=== PATIENT | male | born 1975 | race Caucasian/White ===

== ENCOUNTER 2020-05-24 12:25 | Day surgery (SDC) | payer OTHER ==
[~2020-05-24 12:25] MED LIST: Dexamethasone 20 MG/5 ML VIAL ONE; Glycopyrrolate 0.2 MG/ML 5 ML SYRINGE ONE; Lidocaine 1% PF 5 ML VIAL ONE; Ondansetron PF 4 MG/2 ML Vial ONE; PROPOFOL 200 MG/20 ML VIAL ONE; Rocuronium Bromide 10 MG/ML (10ML VIAL) ONE; Succinylcholine Chloride 20 MG/ML 10 ml SYRINGE FS ONE
[2020-05-24 13:12] LABS: #Basophils 0.1 thou/uL (0.0-0.2); #Eosinphils 0.1 thou/uL (0.0-0.7); #Monocytes 1.4 thou/uL (0.11-0.59); #Neutrophils 14.1 thou/uL (1.40-6.50); %Basophils 0.3 % (0.0-1.0); %Eosinophils 0.5 % (0.0-10.0); %Lymphocytes 11.5 % (21.0-51.0); %Monocytes 8.1 % (0.0-10.0); %Neutrophils 79.6 % (42.0-75.0); Hemoglobin 14.7 g/dL (14.0-18.0); Mean Corpuscular HGB CONC 34.5 g/dL (32.0-36.0); Mean Corpuscular Hemoglobin 29.8 pg (27.0-31.0); Mean Corpuscular Volume 86.3 fL (78.0-98.0); Mean Platelet Volume 7.6 fL (7.4-10.4); Platelet Count 224 thou/uL (130-400); RBC Distribution Width 11.9 % (11.5-14.5); Red Blood Cell (RBC) Count 4.93 mill/uL (4.70-6.10); White Blood Cell (WBC) Count 17.8 thou/uL (4.8-10.8)
[2020-05-24 13:34] LABS: ALT (SGPT) 13 U/L (8-55); AST (SGOT) 15 U/L (5-34); Albumin 3.9 g/dL (3.5-5.0); Alkaline Phosphatase 121 U/L (40-110); Anion Gap 14 mmol/L (10-20); BUN (Urea Nitrogen) 14 mg/dL (8.9-20.6); Bilirubin, Total 1.1 mg/dL (0.2-1.2); Calc. Creatinine Clearance 0 mL/min (70-130); Calcium 9.2 mg/dL (7.8-10.44); Carbon Dioxide 22 mmol/L (22-29); Chloride 102 mmol/L (98-107); Estimated GFR-MDRD Greater than 90; Glucose 159 mg/dL (70-105); Potassium 3.8 mmol/L (3.5-5.1); Protein, Total 6.9 g/dL (6.0-8.3); Sodium 134 mmol/L (136-145)
[2020-05-24] MEDS ORDERED: Iopamidol 370 76% 100 ML VIAL ONE (13:43)
--- NOTE | 2020-05-24 14:44 | CT ---
CT ABDOMEN AND PELVIS WITH IV CONTRAST: 05/24/20 HISTORY: Right lower quadrant abdominal pain, progressively worsening over the last three days. FINDINGS: Comparison is made with exam of 08/03/14. There are dependent changes in the lung bases. Patient is post cholecystectomy. The liver, spleen, pa ncreas, right adrenal gland and kidneys are normal. There has been interval increase in size of the left adrenal nodule from 14 mm on the previous study to 18 mm on the current exam. The appendix is fluid-filled, distended with a discontinuity in the lateral wall with adjacent free f luid in the right lower quadrant and inflammatory changes in the right pericecum and periappendiceal regions. IMPRESSION: 1. Findings are consistent with acute perforated appendicitis. 2. Interval increase in size of the indeterminate left adrenal nodule since 08/03/14. A dedicated CT s can using the adrenal mass protocol is recommended. Discussed over the telephone with ER physician Dr. Alicia Buck at 2:21 p.m. and the surgeon, Dr. Jayme El at 2:24 p.m. POS: [facility]
[2020-05-24] MEDS ORDERED: Piperacillin/Tazobactam 3.375 GM VIAL ONE (14:48)
[2020-05-24] MEDS ORDERED: Lidocaine 1% w/Epinephrine 1:100K 20 ML VIAL ONE (15:13)
[2020-05-24] MEDS ORDERED: Bupivacaine PF 0.5% 30 ML VIAL ONE (15:13)
[2020-05-24] MEDS ORDERED: Fentanyl 100 MCG/2 ML VIAL ONE ×2 (15:27→18:05)
[2020-05-24] MEDS ORDERED: Lidocaine 2% Jelly 5 ML TUBE ONE (15:27)
[2020-05-24] MEDS ORDERED: Midazolam HCl 2 mg/2 ml Vial ONE (15:27)
[2020-05-24] MEDS ORDERED: HYDROmorphone 0.5 MG/0.5 ML SYRINGE ONE (15:27)
--- NOTE | 2020-05-24 15:27 | HP ---
HISTORY OF PRESENT ILLNESS: Mr. Stone is a 44-year-old male, who lives at home helping his mother in [place]. For 3 days, he has had lower abdominal pain he thought was gas. He has not experienced nausea, vomiting, or fever. He has suffered anorexia. Pain is worse with movement. ALLERGIES: TETANUS, CTZ. TOBACCO: One-half pack per day. ALCOHOL: None. PAST SURGICAL HISTORY: Laparoscopic cholecystectomy, right knee surgery. PAST MEDICAL HISTORY: Insulin-dependent diabetes mellitus, 10 units a.m. and 10 units at bedtime; hypertension. REVIEW OF SYSTEMS: Noncontributory. FAMILY HISTORY: Noncontributory. PHYSICAL EXAMINATION: VITAL SIGNS: Heart rate 84, respiratory rate 16, blood pressure 120/70. HEAD, EARS, EYES, NOSE, AND THROAT: Unremarkable. LUNGS: Clear to auscultation. CARDIAC: Regular rate and rhythm without murmur or gallop. ABDOMEN: Soft, tenderness in right lower quadrant without guarding or rebound. Positive Rovsing's. EXTREMITIES: Unremarkable. No ankle edema. NEUROLOGIC: Intact. No deficits. LYMPHATIC: No lymphadenopathy in neck, axilla, or groin. ASSESSMENT AND PLAN: Acute appendicitis. Recommend laparoscopic video appendectomy. Risks of infection, bleeding, reoperation, open procedure discussed. He consents. Job ID: [id number]
[2020-05-24] MEDS ORDERED: Promethazine HCl 25 MG/ML VIAL SLOW IVP PRN (16:53)
[2020-05-24] MEDS ORDERED: Ketorolac Tromethamine 30 MG/ML VIAL IVP PRN ×2 (16:53→17:51)
[2020-05-24] MEDS ORDERED: Meperidine HCl/PF 25 MG/ML VIAL SLOW IVP PRN (16:53)
[2020-05-24] MEDS ORDERED: Promethazine HCl 25 MG/ML VIAL IM PRN (16:53)
[2020-05-24] MEDS ORDERED: Ondansetron HCl/PF 4 MG/2 ML Vial IVP PRN (16:53)
[2020-05-24] MEDS ORDERED: Ondansetron PF 4 MG/2 ML Vial IVP PRN (17:47)
[2020-05-24] MEDS ORDERED: hydrALAZINE 20 MG/ML VIAL SLOW IVP PRN (17:47)
[2020-05-24] MEDS ORDERED: Morphine 4 MG/ML VIAL SLOW IVP PRN (17:47)
[2020-05-24] MEDS ORDERED: Dextrose 5% in Water 1,000 ML IV PRN (17:47)
[2020-05-24] MEDS ORDERED: Morphine 2 MG/ML VIAL SLOW IVP PRN (17:47)
[2020-05-24] MEDS ORDERED: Dextrose 50% Abboject 50 ML SYRINGE SLOW IVP PRN (17:47)
[2020-05-24] MEDS ORDERED: traMADol HCl 50 MG TAB PO PRN ×2 (17:51)
[2020-05-24] MEDS ORDERED: Acetaminophen 500 MG TAB PO PRN (17:51)
[2020-05-24] MEDS ORDERED: Gabapentin 300 MG CAP PO PRN (17:54)
[2020-05-24] MEDS ORDERED: Albuterol 200 PUFF (6.7GM INHALER) INH PRN (17:54)
[2020-05-24] MEDS ORDERED: Albuterol Sulfate 1.25 MG/3 ML NEB NEB PRN (17:54)
--- NOTE | 2020-05-24 19:24 | OP ---
DATE OF PROCEDURE: 05/24/2020 PREOPERATIVE DIAGNOSES: Acute appendicitis with abscess. POSTOPERATIVE DIAGNOSIS: Acute appendicitis with abscess. PROCEDURES PERFORMED: Laparoscopic video appendectomy, #19 Gold VARGAS drain drainage of intraabdominal abscess, irrigation ANESTHESIA: General with local 0.5% Marcaine 30 mL mixed with 1% Xylocaine with epinephrine 20 mL used, mixture. DESCRIPTION OF PROCEDURE: The patient was taken to the operating room, where under general anesthesia, Hagan catheter placed at the beginning of the procedure and removed at the end. Abdomen was prepared with ChloraPrep and draped in routine fashion. Local anesthetic mixture was infiltrated into the skin and subcutaneous tissue about the operative site. Infraumbilical incision made. Pneumoperitoneum to 15 mmHg was obtained with a Veress needle, replaced with a 5 port, video laparoscope inserted. Right lateral subcostal incision made and a 5 port placed. Suprapubic incision made and a 12 port placed. Appendix was acutely inflamed, as the cecum and the appendix mobilized from the abdominal wall, there was an abscess, which was evacuated with suction. Appendix dissected free and stump divided with Endo-ARAVIND blue load stapler. Stapled the cecal stump, was hemostatic and secured, as the appendix dissected retrograde, divided, mesentery inflamed with LigaSure. Appendix was placed in endobag and removed. Area irrigated. Good hemostasis noted. #19 Gold VARGAS drain placed in the right gutter and pelvis, exiting the trocar site, right lateral subcostal, secured with 3-0 nylon suture. The irrigant and pneumoperitoneum evacuated and all instruments removed. All skin incisions were approximated with subdermal 4-0 Monocryl, suprapubic fascia approximated with 0 Vicryl on UR needle. The patient tolerated the procedure well. Job ID: [id number]
[2020-05-24] MEDS ORDERED: Famotidine 20 MG TAB PO SCH (21:00)
[2020-05-24] MEDS: Piperacillin/Tazobactam 4.5 GM in Sodium Chloride 0.9% 100 ML IVPB SCH (21:04)
[2020-05-24] MEDS: Sodium Chloride 0.9% 1,000 ML IV SCH (21:04)
[2020-05-24] MEDS: Bupropion 150 MG SR TAB PO SCH (21:05)
[2020-05-24] MEDS: Enoxaparin Sodium 40 MG/0.4 ML SYRINGE SC SCH (21:05)
[2020-05-24] MEDS: metFORMIN XR 500 MG TAB PO SCH (21:05)
[2020-05-24] MEDS: Citalopram 20 MG TAB PO SCH (21:06)
[2020-05-24] MEDS: HumaLOG 300 UNITS/3 ML VIAL SC PRN (21:06)
[2020-05-24 21:24] VITALS: BMI 22.1
[2020-05-25] MEDS: Piperacillin/Tazobactam 4.5 GM in Sodium Chloride 0.9% 100 ML IVPB SCH ×5 (02:12→20:41)
[2020-05-25 05:20] LABS: Hemoglobin A1c 10.9 % (4.0-6.0)
[2020-05-25 05:30] LABS: Band 4 % (5-11); Hemoglobin 13.7 g/dL (14.0-18.0); Hypochromia SLIGHT = 6-15 cells (100X) (0-5/hpf); Lymphocytes 5 % (21-51); MDiff Complete? YES; Mean Corpuscular HGB CONC 33.2 g/dL (32.0-36.0); Mean Corpuscular Hemoglobin 29.5 pg (27.0-31.0); Mean Corpuscular Volume 88.9 fL (78.0-98.0); Mean Platelet Volume 7.7 fL (7.4-10.4); Monocytes 2 % (0-10); Neutrophil 89 % (42-75); Platelet Count 222 thou/uL (130-400); Platelet Morphology Comment Appears Adequate; Red Blood Cell (RBC) Count 4.65 mill/uL (4.70-6.10); White Blood Cell (WBC) Count 19.3 thou/uL (4.8-10.8)
[2020-05-25 05:34] LABS: Anion Gap 22 mmol/L (10-20); BUN (Urea Nitrogen) 29 mg/dL (8.9-20.6); Calc. Creatinine Clearance 88 mL/min (70-130); Calcium 8.3 mg/dL (7.8-10.44); Carbon Dioxide 12 mmol/L (22-29); Chloride 107 mmol/L (98-107); Estimated GFR-MDRD 79; Glucose 161 mg/dL (70-105); Sodium 136 mmol/L (136-145)
[2020-05-25] MEDS: Mometasone 200 MCG/Formoterol 5 MCG 120 PUFF INHALER INH SCH ×2 (07:04→18:42)
[2020-05-25] MEDS: Empagliflozin 25 MG TAB PO SCH (08:41)
[2020-05-25] MEDS: Bupropion 150 MG SR TAB PO SCH ×2 (08:41→20:40)
[2020-05-25] MEDS: metFORMIN XR 500 MG TAB PO SCH ×2 (08:41→20:40)
[2020-05-25] MEDS: Sodium Chloride 0.9% 1,000 ML IV SCH ×3 (08:44→16:58)
[2020-05-25] MEDS ORDERED: Liraglutide [Victoza 2-Pak] 1.8 MG SC SCH (09:00)
[2020-05-25] MEDS: HumaLOG 300 UNITS/3 ML VIAL SC PRN ×2 (11:24→16:56)
[2020-05-25] MEDS: Nicotine 14 MG PATCH TD SCH (13:17)
[2020-05-25] MEDS: Ibuprofen 600 MG TAB PO PRN (14:31)
--- NOTE | 2020-05-25 17:04 | PRG ---
DATE OF SERVICE: 05/25/2020 SUBJECTIVE: Mikal Stone is doing well postoperatively, postoperative laparoscopic appendectomy for advanced appendicitis. He had an abscess at the time of appendectomy. A drain was left in place. The patient states he is not having any pain. OBJECTIVE: VITAL SIGNS: Temperature 97.9 degrees, pulse 63, blood pressure 118/66. VARGAS drain is serosanguineous as expected, 60 mL in the last 24 hours. His white count this morning is 19, hemoglobin 13. Basic metabolic profile is normal. LUNGS: Clear to auscultation. CARDIAC: Regular rate and rhythm without murmur or gallop. ABDOMEN: Soft, nontender. Surgical wounds look good. VARGAS drain is serosanguineous. ASSESSMENT AND PLAN: Status post ruptured appendicitis with abscess appreciated intraoperatively, but not on CAT scan. We would continue intravenous antibiotics for another 24 to 48 hours. I have written prescription for Augmentin for [address] Call is covering over the weekend and the drain will be removed prior to discharge. Hopefully, he can go home in the next day or two, pending diet tolerance and his clinical course. He can follow up with me in 2 to 3 weeks. Take Tylenol and Advil for pain. Job ID: [id number]
[2020-05-25] MEDS: Enoxaparin Sodium 40 MG/0.4 ML SYRINGE SC SCH (20:40)
[2020-05-25] MEDS: Citalopram 20 MG TAB PO SCH (20:41)
[2020-05-26] MEDS: Piperacillin/Tazobactam 4.5 GM in Sodium Chloride 0.9% 100 ML IVPB SCH ×3 (01:10→13:17)
[2020-05-26] MEDS: Sodium Chloride 0.9% 1,000 ML IV SCH ×2 (01:12→09:07)
[2020-05-26] MEDS: Ibuprofen 600 MG TAB PO PRN (03:28)
[2020-05-26 07:38] VITALS: TEMP 97.7
[2020-05-26] MEDS: Empagliflozin 25 MG TAB PO SCH (08:01)
[2020-05-26] MEDS: Bupropion 150 MG SR TAB PO SCH (08:01)
[2020-05-26] MEDS: metFORMIN XR 500 MG TAB PO SCH (08:01)
[2020-05-26] MEDS: Mometasone 200 MCG/Formoterol 5 MCG 120 PUFF INHALER INH SCH (08:06)
[2020-05-26 09:33] VITALS: BP 93/57
[2020-05-26 10:24] LABS: #Basophils 0.1 thou/uL (0.0-0.2); #Eosinphils 0.1 thou/uL (0.0-0.7); #Lymphocytes 1.7 thou/uL (1.20-3.40); #Monocytes 0.8 thou/uL (0.11-0.59); %Basophils 0.5 % (0.0-1.0); %Eosinophils 1.5 % (0.0-10.0); %Lymphocytes 17.2 % (21.0-51.0); %Monocytes 8.2 % (0.0-10.0); %Neutrophils 72.6 % (42.0-75.0); Hemoglobin 13.1 g/dL (14.0-18.0); Mean Corpuscular HGB CONC 34.1 g/dL (32.0-36.0); Mean Corpuscular Hemoglobin 30.3 pg (27.0-31.0); Mean Corpuscular Volume 88.9 fL (78.0-98.0); Mean Platelet Volume 7.6 fL (7.4-10.4); Platelet Count 202 thou/uL (130-400); RBC Distribution Width 12.2 % (11.5-14.5); Red Blood Cell (RBC) Count 4.32 mill/uL (4.70-6.10); White Blood Cell (WBC) Count 9.6 thou/uL (4.8-10.8)
[2020-05-26] MEDS: HumaLOG 300 UNITS/3 ML VIAL SC PRN (11:27)
[2020-05-26] MEDS ORDERED: Fluticasone Propionate Nasal Spray 16 gm Bottle NASAL PRN (12:56)
[2020-05-26] MEDS ORDERED: Non-Formulary Item 1 EACH (Naproxen Sodium [Aleve] 220 MG) PO PRN (12:56)
--- NOTE | 2020-05-26 13:04 | PDOC.GSPN ---
Surgery Progress Note: Subj - Subjective Narrative: Discharge note. Patient is feeling good today. He has not required any pain medication and is ambulating in the halls. He is tolerating a regular diet and passing gas. VARGAS drainage is minimal and serosanguineous in color. He is afebrile and his white count is normal. His incisions look good and his abdomen is soft nontender nondistended. He is going to be discharged home on a course of Augmentin with outpatient follow-up with Dr. Fallon. His VARGAS will be removed before he leaves. He is to resume his home medications. Surgery Progress Note: Obj - Vital signs Vital signs: Vital Signs - Most Recent Temp Pulse Resp BP Pulse Ox 97.7 F 66 16 93/57 L 99 05/26/20 07:37 05/26/20 09:33 05/26/20 08:06 05/26/20 09:33 05/26/20 08:06 Surgery Progress Note: Results - Labs Result Diagrams: 05/26/20 09:53 05/25/20 04:55 Lab results: Laboratory Results - last 24 hr 05/26/20 05/26/20 05/26/20 05:31 09:53 10:37 WBC 9.6 RBC 4.32 L Hgb 13.1 L Hct 38.4 L MCV 88.9 MCH 30.3 MCHC 34.1 RDW 12.2 Plt Count 202 MPV 7.6 Neutrophils % 72.6 Lymphocytes % 17.2 L Monocytes % 8.2 Eosinophils % 1.5 Basophils % 0.5 Neutrophils # 7.0 H Lymphocytes # 1.7 Monocytes # 0.8 H Eosinophils # 0.1 Basophils # 0.1 POC Glucose 114 H 174 H
[2020-05-26] MEDS: Nicotine 14 MG PATCH TD SCH (13:17)
[2020-05-26] MEDS ORDERED: Atorvastatin Calcium 10 MG TAB PO SCH (21:00)
[2020-05-26] MEDS ORDERED: Insulin Glargine 20 UNITS in Pre-Filled Syringe 1 EACH SC SCH (21:00)
== END 2020-05-26 14:45 | disposition home or self-care (01) ==
LOC: ERS 12:25 → SURG A 14:14 → SDC 14:14
PROVIDERS: ATTEND Specialist
PROC: 0DTJ4ZZ Resection of Appendix, Percutaneous Endoscopic Approach (ICD-10-PCS; principal; 2020-05-26)
DX: K35.33 Acute appendicitis with perforation, localized peritonitis, and gangrene, with abscess (principal); F17.210 Nicotine dependence, cigarettes, uncomplicated; E10.9 Type 1 diabetes mellitus without complications; Z79.4 Long term (current) use of insulin
CPT/HCPCS: 36415; 36416; 74177; 80048; 80053; 83036; 83605; 85025; 88304; 96361; 96374; J1100; J1170; J1650; J1885; J2250; J2405; J2543; J2704; J3010; J3490; Q9967; S0020

== ENCOUNTER 2020-06-08 08:26 | Outpatient (CLI) | payer OTHER ==
--- NOTE | 2020-06-08 09:25 | CT ---
CT ABDOMEN AND PELVIS WITH IV CONTRAST 06/08/2020 CLINICAL INFORMATION: Right lower quadrant abdominal pain in a patient with appendectomy 2 weeks ago. COMPARISON: 05/24/2020 Technique: Multiple contiguous axial CT images are obtained through the abdomen and pelvis with IV contrast. Cor onal reformatted images are provided. FINDINGS: Lower Chest: Tiny nonspecific subcentimeter pleural-based nodular densities posteromedial right lung base. Lung bases are otherwise clear Vessels: Vascular calcifications and atherosclerotic plaque is seen in the abdominal aorta and iliac arteries. Abdomen: Portal vein:Patent Gallbladder: Surgically absent. Liver: within normal limits. Spleen: within normal limits. Pancreas: within normal limits. Adrenals: Left adrenal nodule is again seen and stable in size but is unable to be further characteri zed on this post enhanced CT exam. This nodule measures 1.6 cm. Right adrenal gland has a normal CT appearance. Kidneys: within normal limits. Bowel: Normal caliber. Appendix: Nonvisualization of the appendix with postoperative changes seen adjacent to the cecal apex likely related to patient's history of prior appendectomy. There is adjacent inflammatory stranding seen in region of postsurgical changes and in the right paracolic gutter without adjacent b owel wall thickening. Inflammatory changes may be related to the postcholecystectomy changes. There is no fluid collection in this region to suggest an abscess, and no free intraperitoneal gas is seen. Peritoneum: No ascites or free air; no fluid collection. Mesentery and Retroperitoneum: No enlarged mesenteric or retroperitoneal lymph nodes. Abdominal Wall: within normal limits. Pelvis: Reproductive Organs: No pelvic masses. Bladder: Melgoza of the urinary bladder are mildly thickened. The thickening of the urinary bladder wal l is more than typically expected, but this could be attributable to incomplete distention as a similar finding was seen on study in 2013. This finding was not seen on study of 05/24/2020, but urinar y bladder was more distended on that exam. Bones: No suspicious lytic or sclerotic osseous lesions are identified. IMPRESSION: 1. Postoperative changes related to patient's history of prior appendectomy. There are inflammatory c hanges and stranding adjacent to the cecal apex but also extending superiorly in the right paracolic gutter. These findings may be postoperative in origin. There is no adjacent bowel wall thic kening, and no fluid collection is seen to suggest an abscess. No free intraperitoneal gas is visualized. 2. Left adrenal nodule which is larger in size compared to study in 2014. This cannot be further carla acterized on this post enhanced CT exam. Follow-up CT abdomen following the adrenal mass protocol with and without IV contrast is recommended. 3. Thickened melgoza urinary bladder presumed to be secondary to incomplete distention.
[2020-06-08] MEDS ORDERED: Iopamidol 370 76% 100 ML VIAL ONE (12:00)
== END 2020-06-08 08:27 | disposition home or self-care (01) ==
LOC: CT 08:26
PROVIDERS: ATTEND Specialist
DX: G89.18 Other acute postprocedural pain (principal); N32.89 Other specified disorders of bladder; E27.8 Other specified disorders of adrenal gland; Z90.49 Acquired absence of other specified parts of digestive tract
CPT/HCPCS: 74177; Q9967